=== PATIENT | female | born 1955 | race Two or more races ===

== ENCOUNTER → 2025-08-21 | Outpatient (CLI) | payer MEDICAID, SELFPAY ==
--- NOTE | 2025-08-21 13:38 | XR_ITS ---
Examination: Knee bilateral, 6 views Technique: Knee AP, lateral, oblique each knee total 6 views Date and time of exam: August 21, 2025, 12:52 p.m. INDICATIONS: Bilateral knee pain 5 years. FINDINGS: Severe osteopenia. 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
--- NOTE | 2025-08-21 13:38 | XR_ITS ---
Examination: Lumbar spine, 5 views Technique: Lumbar spine AP, lateral, coned lateral lower lumbar spine, bilateral obliques 5 views Exam date and time: August 21, 2025, 1352 hours INDICATIONS: Back pain 15 years. 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
== END | disposition home or self-care (01) ==
LOC: SDIM 13:23
PROVIDERS: PCP Physician Assistant; Referring Provider Physician Assistant; Visit Provider Physician Assistant
DX: M85.88 Other specified disorders of bone density and structure, other site (principal); M81.0 Age-related osteoporosis without current pathological fracture; M17.0 Bilateral primary osteoarthritis of knee
CPT/HCPCS: 72110; 73562